=== PATIENT | male | born 1960 | race Caucasian/White ===

== ENCOUNTER 2016-12-28 19:06 | Emergency (ER) | payer MEDICARE ==
[~2016-12-28] VITALS: Ht 167.6 cm; Wt 108.0 kg
[2016-12-28 19:11] VITALS: BP 174/100; PULSE 86; RESP 14; TEMP 98; O2SAT 98
[2016-12-28] MEDS ORDERED: VANCOMYCIN INJ 1,000 MG in SODIUM CHLOR 0.9% 250 ML INJ 250 ML IV ONE (21:30)
--- NOTE | 2016-12-28 21:45 | PD ---
HPI Chief Complaint: Skin Problem Time Seen by Provider: 21:39 Travel History International Travel<30 days: No Contact w/Intl Traveler<30days: No Traveled to known affect area: No History of Present Illness HPI 56-year-old male that presents to the ED for evaluation of left lower leg infection. Patient has had this for about a week now. Per patient about 4 days ago he was seen a different hospital and was given Keflex. Per patient had an x-ray that showed nothing. Patient states that about 2 months ago something fell into his left fourth toe. He states that ever since his been having issues. Per patient he has noted that the swelling and pain has worsened. Per patient his foot is more swollen than used to be. The foot on the left compared to the right appears to be double in size. He denies any history of blood clots. Per patient the redness seems to be creeping up. He has an allergy to Augmentin. He denies any fevers chills or sweats. No chest pain or shortness of breath. States compliance with the Keflex. He has not seen his PCP for this. Per patient pain is 5 out of 10. Patient has difficulty ambulating. Patient does have chronic neurological and back problems that he normally takes medication for. He denies any history of HIV or IV drug abuse. PFSH Past Medical History Neurologic: Yes (RSD) Tetanus Vaccination: < 5 Years Influenza Vaccination: Yes Past Surgical History Thoracic Surgery: Yes (STIMULATEWR IN BACK) Social History Alcohol Use: No Tobacco Use: No Substance Use: No Allergies-Medications (Allergen,Severity, Reaction): Coded Allergies: Augmentin (Verified Adverse Reaction, Intermediate, Nausea/Vomiting, ) Reported Meds & Prescriptions Reported Meds & Active Scripts Active Clindamycin (Clindamycin HCl) 150 Mg Cap 300 Mg PO Q6H 10 Days Bactrim DS (Sulfamethoxazole-Trimethoprim) 800-160 Mg Tab 1 Tab PO BID 14 Days Review of Systems Except as stated in HPI: all other systems reviewed are Neg Physical Exam Narrative GENERAL: SKIN: Warm and dry. HEAD: Atraumatic. Normocephalic. EYES: Pupils equal and round. No scleral icterus. No injection or drainage. ENT: No nasal bleeding or discharge. Mucous membranes pink and moist. Tongue is midline. No uvula deviation. NECK: Trachea midline. No JVD. CARDIOVASCULAR: Regular rate and rhythm. No murmurs, S3, S4. RESPIRATORY: No accessory muscle use. Clear to auscultation. Breath sounds equal bilaterally. GASTROINTESTINAL: Abdomen soft, non-tender, nondistended. Hepatic and splenic margins not palpable. MUSCULOSKELETAL: Extremities without clubbing, cyanosis, or edema. No obvious deformities. Full range of motion of the upper and lower extremities bilaterally. 2+ pulses bilaterally. No lumbar, thoracic, cervical spine tenderness to palpation. Patient does have what appears to be a small ulcer- like lesion on the left fourth toe. On the distal aspect. Less than one centimeters in diameter. Erythematous and swollen. Left foot compared to the right is considerably swollen. About 2+ pitting edema. 2+ pulses bilaterally. Patient does have warmness and erythema noted creeping up the foot. NEUROLOGICAL: Awake and alert. No obvious cranial nerve deficits. Motor grossly within normal limits. Five out of 5 muscle strength in the arms and legs. Normal speech. PSYCHIATRIC: Appropriate mood and affect; insight and judgment normal. Data Data Last Documented VS Vital Signs Date Time Temp Pulse Resp B/P Pulse Ox O2 Delivery O2 Flow Rate FiO2 12/28/16 19:11 98.0 86 14 174/100 98 Room Air Orders Complete Blood Count With Diff (12/28/16 21:20) Basic Metabolic Panel (Bmp) (12/28/16 21:20) Blood Culture (12/28/16 21:20) Magnesium (Mg) (12/28/16 21:20) Iv Access Insert/Monitor (12/28/16 21:20) Vancomycin Inj (Vancomycin Inj) (12/28/16 21:30) Foot, Complete (Tum1pjc) (12/28/16 ) Us Leg Venous Doppler (12/28/16 ) C-Reactive Protein (Crp) (12/28/16 21:40) Wound Care (12/28/16 22:52) Labs Laboratory Tests Test 12/28/16 21:40 White Blood Count 8.0 TH/MM3 Red Blood Count 5.15 MIL/MM3 Hemoglobin 14.8 GM/DL Hematocrit 43.4 % Mean Corpuscular Volume 84.4 FL Mean Corpuscular Hemoglobin 28.8 PG Mean Corpuscular Hemoglobin 34.1 % Concent Red Cell Distribution Width 13.3 % Platelet Count 232 TH/MM3 Mean Platelet Volume 8.5 FL Neutrophils (%) (Auto) 60.7 % Lymphocytes (%) (Auto) 21.3 % Monocytes (%) (Auto) 9.6 % Eosinophils (%) (Auto) 7.8 % Basophils (%) (Auto) 0.6 % Neutrophils # (Auto) 4.8 TH/MM3 Lymphocytes # (Auto) 1.7 TH/MM3 Monocytes # (Auto) 0.8 TH/MM3 Eosinophils # (Auto) 0.6 TH/MM3 Basophils # (Auto) 0.0 TH/MM3 CBC Comment DIFF FINAL Differential Comment Sodium Level 139 MEQ/L Potassium Level 3.7 MEQ/L Chloride Level 103 MEQ/L Carbon Dioxide Level 30.6 MEQ/L Anion Gap 5 MEQ/L Blood Urea Nitrogen 9 MG/DL Creatinine 0.74 MG/DL Estimat Glomerular Filtration 110 ML/MIN Rate Random Glucose 106 MG/DL Calcium Level 9.2 MG/DL Magnesium Level 2.2 MG/DL C-Reactive Protein 0.98 MG/DL MDM Medical Decision Making Medical Screen Exam Complete: Yes Emergency Medical Condition: Yes Medical Record Reviewed: Yes Interpretation(s) CBC & BMP Diagram 12/28/16 21:40 Last Impressions Lower Extremity Ultrasound 12/28/16 0000 Signed Impressions: Service Date/Time: December 21:34 - CONCLUSION: Normal examination. Jak Sharp MD Foot X-Ray 12/28/16 0000 Signed Impressions: Service Date/Time: December 21:33 - CONCLUSION: No acute bony findings Jak Sharp MD CRP slightly elevated Differential Diagnosis Cellulitis versus DVT versus osteomyelitis versus failed outpatient treatment versus sepsis Narrative Course 56-year-old male that presents to the ED for evaluation of possible worsening infection. Patient was properly examined and was found to have signs and symptoms consistent appears to be cellulitis. Concerning for osteomyelitis present. I recommend labs and imaging. Cannot rule out DVT secondary to significant swelling. US was ordered. Labs and imaging essentially unremarkable. No leukocytosis. At this time I did offer patient observation admission for IV antibiotics as he clinically felt all patient treatment. Patient will prefer to go home secondary to having to take care of his child. I feel that at this time this is reasonable as patient has only taking Keflex and not believe this is covering appropriate thomas causing the infection. This was discussed in my attending who is in agreement with this plan. Patient will be given prescription for clindamycin and Bactrim. I strongly encouraged the patient to come back in 2 days for recheck. If worsening he is to come back earlier. See ED worsening symptoms. Diagnosis Primary Impression: Cellulitis Qualified Code: L03.116 - Cellulitis of left lower extremity Patient Instructions: General Instructions Additional Instructions: Take medications as prescribed. Recheck in 48 hours. Follow-up with PCP. See ED worsening symptoms. Med/Other Pt SpecificInfo: Prescription(s) given, Wound Care Scripts Clindamycin 150 Mg Ats122 Mg PO Q6H 10 Days Prov:Conrad Lindo MD 12/28/16 Sulfamethoxazole-Trimethoprim (Bactrim DS)800-160 Mg Tab1 Tab PO BID 14 Days Prov:Conrad Lindo MD 12/28/16 Disposition: 01 DISCHARGE HOME Condition: Stable Arsh Pantoja December 28, 2016 21:45
--- NOTE | 2016-12-28 22:06 | RADRPT ---
EXAM DATE/TIME: 12/28/2016 21:33 [facility] COMPARISON: No previous studies available for comparison. INDICATIONS : Left foot pain, swelling, and redness. Fourth digit has an open sore. MEDICAL HISTORY : None. SURGICAL HISTORY : Open reduction internal fixation, 1st digit left foot. Open reduction internal fixation left ankle. ENCOUNTER: Initial ACUITY: 3 days PAIN SCORE: 6/10 LOCATION: Left foot FINDINGS: There has been previous ankle fusion with a tibial IM angeline extending down into the calcaneus secured w ith a couple of screws. There has been plate and screw fixation of the proximal aspect of the first m etatarsal. There are is no evidence of fracture, dislocation or bony destruction. There are mild flex ion contractures of the toes and slight bunion deformity. CONCLUSION: No acute bony findings Jak Sharp MD on December 28, 2016 at 22:02 Board Certified Radiologist. This report was verified electronically.
[2016-12-28 22:17] LABS: AUTOMATED NEUTROPHIL # 4.8 TH/MM3 (1.8-7.7); BASOPHIL % 0.6 % (0.0-2.0); EOSINOPHIL # 0.6 TH/MM3 (0-0.4); EOSINOPHIL % 7.8 % (0.0-4.0); HEMATOCRIT 43.4 % (39.0-51.0); HEMO FLAGS DIFF FINAL; LYMPH % 21.3 % (9.0-44.0); LYMPHOCYTE # 1.7 TH/MM3 (1.0-4.8); MEAN CELL VOLUME 84.4 FL (80.0-100.0); MEAN CORPUSCULAR HEMOGLOBIN 28.8 PG (27.0-34.0); MEAN CORPUSCULAR HGB CONC 34.1 % (32.0-36.0); MONO % 9.6 % (0.0-8.0); NEUT % 60.7 % (16.0-70.0); PLATELET COUNT 232 TH/MM3 (150-450); RED BLOOD COUNT 5.15 MIL/MM3 (4.50-5.90); RED CELL DISTRIBUTION WIDTH 13.3 % (11.6-17.2)
[2016-12-28 22:30] LABS: BICARBONATE 30.6 MEQ/L (21.0-32.0); MAGNESIUM 2.2 MG/DL (1.5-2.5); POTASSIUM 3.7 MEQ/L (3.5-5.1)
--- NOTE | 2016-12-28 22:36 | RADRPT ---
EXAM DATE/TIME: 12/28/2016 21:34 [facility] COMPARISON: No previous studies available for comparison. INDICATIONS : Left leg swelling. MEDICAL HISTORY : Reflex sympathetic dystrophy. SURGICAL HISTORY : Total knee replacement, right. Left ankle reconstruction. Back stimulater. ENCOUNTER: Initial ACUITY: 2 day PAIN SCORE: 6/10 LOCATION: Left leg. TECHNIQUE: Venous ultrasound of the leg was performed from the inguinal ligament to the proximal calf. Real-josse e, color Doppler and spectral tracing, compression and augmentation techniques were used. FINDINGS: There is normal compressibility of the deep venous system from the inguinal region to the proximal ca lf. No echogenic clot is seen in the lumen of the common femoral, femoral, popliteal, and posterior tibial veins. There is a normal response of the venous system to proximal and distal augmentation an d respiration. CONCLUSION: Normal examination. Jak Sharp MD on December 28, 2016 at 22:33 Board Certified Radiologist. This report was verified electronically.
[2016-12-28] MEDS ORDERED: CLIN1CAP5 PO (22:49)
[2016-12-28] MEDS ORDERED: BACT800T5 PO (22:49)
[2016-12-29] VITALS: BP 166/84
== END 2016-12-29 00:07 | disposition home or self-care (01) ==
LOC: NEPE 19:06
DX: L03.116 Cellulitis of left lower limb (principal); Z79.899 Other long term (current) drug therapy
CPT/HCPCS: 73630; 80048; 83735; 85025; 86140; 87040; 93971; 96374; 99284; J3370; J7050

== ENCOUNTER 2016-12-31 10:52 | Emergency (ER) | payer MEDICARE ==
[~2016-12-31] VITALS: Ht 167.6 cm; Wt 100.0 kg
[~2016-12-31 10:52] MED LIST: BACT800T5 PO; CLIN1CAP5 PO
[2016-12-31 10:53] VITALS: BP 172/98; PULSE 74; RESP 16; TEMP 98.2; O2SAT 99
[2016-12-31] MEDS ORDERED: NEXI40CA PO (11:08)
[2016-12-31] MEDS ORDERED: METH10TA PO (11:08)
[2016-12-31] MEDS ORDERED: ADDE30TA PO (11:08)
[2016-12-31] MEDS ORDERED: TAMS5CAP PO (11:08)
[2016-12-31] MEDS ORDERED: TOPI200 PO (11:08)
[2016-12-31] MEDS ORDERED: LIDOCAINE HCL 1% 50 ML VIAL INFIL ONE (11:30)
[2016-12-31] MEDS ORDERED: NEOMYCIN/POLYMYXIN/BACITRACIN OINT 0.9 GM PACKET TOPICAL ONE (11:45)
--- NOTE | 2016-12-31 11:45 | PD ---
HPI . Recheck of cellulitis Chief Complaint: Wound/Suture/Staple Re-Check Time Seen by Provider: 11:13 Travel History International Travel<30 days: No Contact w/Intl Traveler<30days: No Traveled to known affect area: No History of Present Illness HPI Patient presents for recheck of cellulitis. He was seen here 2 days ago for same. He was treated with a dose of IV vancomycin and was discharged on clindamycin and Bactrim. The patient is still complaining with significant pain in his left fourth toe. He believes that the toenail is ingrown and would like for me to remove it. He rates his current pain as 7/10. Pain is exacerbated by touching the fifth toe. The patient's symptoms started over a week ago. He was reportedly seen at an outside hospital on about 12/24 and given a prescription for Keflex. He did not improve with Keflex and was subsequently seen here. He was worked up for possible osteomyelitis at that time. He had a normal white blood count and C- reactive protein. X-ray showed no obstructive lesion. The patient was treated with the above-mentioned antibiotics and was instructed to return here today for routine follow-up. [facility] Past Medical History Neurologic: Yes (RSD) Past Surgical History Thoracic Surgery: Yes (STIMULATEWR IN BACK) Social History Alcohol Use: No Tobacco Use: No Substance Use: No Allergies-Medications (Allergen,Severity, Reaction): Coded Allergies: Augmentin (Verified Adverse Reaction, Intermediate, Nausea/Vomiting, ) Reported Meds & Prescriptions Reported Meds & Active Scripts Active Clindamycin (Clindamycin HCl) 150 Mg Cap 300 Mg PO Q6H 10 Days Bactrim DS (Sulfamethoxazole-Trimethoprim) 800-160 Mg Tab 1 Tab PO BID 14 Days Reported Nexium (Esomeprazole DR) 40 Mg Capdr 40 Mg PO DAILY Topamax (Topiramate) 200 Mg Tab 200 Mg PO BID Flomax (Tamsulosin HCl) 0.4 Mg Cap 0.4 Mg PO HS Methadone (Methadone HCl) 10 Mg Tab 10 Mg PO BID Adderall (Amphetamine-Dextroamphetamine) 30 Mg Tab 30 Mg PO BID Avoid late evening doses. Space doses at least 4 to 6 hours if more than once/day dosing. Review of Systems Except as stated in HPI: all other systems reviewed are Neg General / Constitutional: No: Fever, Chills Musculoskeletal: Positive: Edema, Pain (left fourth toe) Skin: Positive Change in Pigmentation Physical Exam Narrative GENERAL: Awake and alert and in no acute distress. SKIN: Warm and dry. Erythema of the left lower extremity extending from the foot to about senior living up the lower leg. It is slightly warm to the touch. He has some fluctuance at the tip of the fourth toe and it is exquisitely tender to palpation. HEAD: Atraumatic. Normocephalic. EYES: Pupils equal and round. NECK: Trachea midline. CARDIOVASCULAR: Regular rate and rhythm. RESPIRATORY: No accessory muscle use. MUSCULOSKELETAL: No obvious deformities. No edema. NEUROLOGICAL: Awake and alert. No obvious cranial nerve deficits. Motor grossly within normal limits. Normal speech. PSYCHIATRIC: Appropriate mood and affect; insight and judgment normal. Data Data Last Documented VS Vital Signs Date Time Temp Pulse Resp B/P Pulse Ox O2 Delivery O2 Flow Rate FiO2 12/31/16 11:09 18 12/31/16 10:53 98.2 74 172/98 99 Orders Lidocaine 1% Inj (50 Ml) (Xylocaine 1% I (12/31/16 11:30) Jansmhgc-Hwidh-Yhrwrbcrsn Oint (Neospori (12/31/16 11:45) Wound Care (12/31/16 11:45) MDM Medical Decision Making Medical Screen Exam Complete: Yes Emergency Medical Condition: Yes Medical Record Reviewed: Yes (pertinent results of the review of his records are documented in his history of present illness.) Differential Diagnosis My differential diagnosis includes but is not limited to localized wound infection, cellulitis, abscess Narrative Course Patient presents for recheck of cellulitis. He is currently being treated with clindamycin and Bactrim. He reports compliance with this medication. He reports no fever or any other systemic complaints. He would like to have his left fourth toenail removed as he believes that it is causing him significant pain. He does have what appears to be an abscess at the tip of the left fourth toe. Therefore, I will do a digital block, remove the nail and incise the tip of the toe. Procedures Procedure Narrative DIGITAL BLOCK: A digital block is performed on the left fourth toe using 10 cc of 1% plain lidocaine. Adequate anesthesia was not obtained. Therefore, the area was locally infiltrated with an additional 2 cc of 1% plain lidocaine. REMOVAL OF NAIL: The skin was prepped with Betadine. Following adequate anesthesia, the nail was removed using a needle truck driver teamster. The fluctuant pocket was incised with #11 blade. There was no pus. Diagnosis Primary Impression: Cellulitis Qualified Code: L03.116 - Cellulitis of left lower extremity Referrals: [facility] 3 days Patient Instructions: Cellulitis (DC), General Instructions Additional Instructions: Wash her toe twice daily with soap and water and then apply Neosporin ointment. Continue the antibiotics. Disposition: 01 DISCHARGE HOME Condition: Stable Cecile Burks MD December 31, 2016 11:45
== END 2016-12-31 12:13 | disposition home or self-care (01) ==
LOC: NEPC 10:52
DX: L03.116 Cellulitis of left lower limb (principal)
CPT/HCPCS: 11730

== ENCOUNTER 2017-03-24 02:48 | Emergency (ER) | payer MEDICARE ==
[~2017-03-24] VITALS: Ht 170.2 cm; Wt 108.0 kg
[~2017-03-24 02:48] MED LIST changes: +ADDE30TA PO; +METH10TA PO; +NEXI40CA PO; +TAMS5CAP PO; +TOPI200 PO
[2017-03-24 02:51] VITALS: BP 168/89; PULSE 80; RESP 12; TEMP 97.6; O2SAT 97
[2017-03-24] MEDS ORDERED: ACETAMINOPHEN 500 MG CPLT PO ONE (03:30)
--- NOTE | 2017-03-24 03:46 | PD ---
HPI Chief Complaint: Pain: Acute or Chronic Time Seen by Provider: 03:18 Travel History International Travel<30 days: No Contact w/Intl Traveler<30days: No Traveled to known affect area: No History of Present Illness HPI Patient is a 56-year-old male who presents emergency Department with complaint of knee pain. Patient has a history of knee osteoarthritis status post TKA 2009. Patient states that every once in a while his right knee will "swell up" , and is associated with some pain. Patient was doing some cleaning around the house yesterday. He woke up this morning to use a restroom and noticed that his right knee was swollen prompting his ER visit. Pain is primarily in the lateral aspect of the right knee which is chronic for patient. He has not taken anything for pain prior to arrival. Patient also notes some right sided shoulder pain, worse with movement. He denies any specific injury, fall, trauma , etc. PFSH Past Medical History ADHD: Yes GERD: Yes Neurologic: Yes (RSD) Migraines: Yes Influenza Vaccination: Yes Past Surgical History Thoracic Surgery: Yes (STIMULATER IN BACK) Social History Alcohol Use: No Tobacco Use: No Substance Use: No Allergies-Medications (Allergen,Severity, Reaction): Coded Allergies: Augmentin (Verified Adverse Reaction, Intermediate, Nausea/Vomiting, ) Reported Meds & Prescriptions Reported Meds & Active Scripts Active Reported Nexium (Esomeprazole DR) 40 Mg Capdr 40 Mg PO DAILY Topamax (Topiramate) 200 Mg Tab 200 Mg PO BID Flomax (Tamsulosin HCl) 0.4 Mg Cap 0.4 Mg PO HS Methadone (Methadone HCl) 10 Mg Tab 10 Mg PO BID Adderall (Amphetamine-Dextroamphetamine) 30 Mg Tab 30 Mg PO BID Avoid late evening doses. Space doses at least 4 to 6 hours if more than once/day dosing. Review of Systems Except as stated in HPI: all other systems reviewed are Neg Physical Exam Narrative GENERAL: Adult male appearing older than stated age in no acute distress SKIN: Focused skin assessment warm/dry. HEAD: Normocephalic. EYES: No scleral icterus. No injection or drainage. ENT: Mucous membranes pink and moist. CARDIOVASCULAR: Regular rate and rhythm. RESPIRATORY: No accessory muscle use. GASTROINTESTINAL: Obese MUSCULOSKELETAL: Right upper extremity without any obvious deformity. No focal tenderness to palpation. Patient has pain with extreme abduction and external rotation area didn't 5 out of 5 strength, normal sensation and distal pulses. Right lower extremity with scar from previous DKA. There is no obvious palpable joint effusion, swelling, erythema, warmth. Patient does complain of some slight tenderness to palpation over the lateral aspect of the joint line. Distal sensation, pulses, strength intact. Normal ambulation. NEUROLOGICAL: Awake and alert. Normal speech. PSYCHIATRIC: Appropriate mood and affect; insight and judgment normal. Data Data Last Documented VS Vital Signs Date Time Temp Pulse Resp B/P Pulse Ox O2 Delivery O2 Flow Rate FiO2 03/24/17 02:51 97.6 80 12 168/89 97 Room Air Orders Knee, Complete (4vws) (03/24/17 03:23) Shoulder, Complete (>2vws) (03/24/17 03:23) Acetaminophen (Tylenol) (03/24/17 03:30) MDM Medical Decision Making Medical Screen Exam Complete: Yes Emergency Medical Condition: Yes Medical Record Reviewed: Yes Differential Diagnosis 56-year-old male here with complaint of right knee and right shoulder pain. Differential includes knee osteoarthritis, fracture, internal derangement of the knee, rotator cuff injury right shoulder, overuse injury, drug-seeking behavior. Patient is on methadone and is followed by a physician in [place].. There is no evidence of infection, septic arthritis clinically. Narrative Course Patient given Tylenol for pain. X-rays of the right shoulder and right knee showed right sided knee joint effusion otherwise negative Diagnosis Primary Impression: Effusion of right knee joint Additional Impressions: Right knee pain Qualified Code: M25.561 - Chronic pain of right knee Right shoulder pain Qualified Code: M25.511 - Acute pain of right shoulder Referrals: Primary Care Physician call for appointment Additional Instructions: Tylenol, ibuprofen, Aleve as needed for pain. Ice the affected area 20 minutes at a time 3-4 times daily. Med/Other Pt SpecificInfo: No Change to Meds Disposition: 01 DISCHARGE HOME Condition: Stable Cristiane Ames MD Mar 24, 2017 03:46
--- NOTE | 2017-03-24 04:12 | RADRPT ---
EXAM DATE/TIME: 03/24/2017 03:33 [facility] COMPARISON: No previous studies available for comparison. INDICATIONS : Pain and swelling to right shoulder- no known injury. MEDICAL HISTORY : None. SURGICAL HISTORY : None. ENCOUNTER: Initial ACUITY: 1 day PAIN SCORE: 7/10 LOCATION: Right Shoulder FINDINGS: There is no evidence of acute fracture. Bony mineralization is normal. The glenohumeral joint is inta ct. The acromioclavicular joint is intact. CONCLUSION: 1. Negative examination of the shoulder. Bruce Jaramillo MD on March 24, 2017 at 4:11 Board Certified Radiologist. This report was verified electronically.
--- NOTE | 2017-03-24 04:13 | RADRPT ---
EXAM DATE/TIME: 03/24/2017 03:38 [facility] COMPARISON: No previous studies available for comparison. INDICATIONS : Pain and swelling to right knee- no known injury. MEDICAL HISTORY : None. SURGICAL HISTORY : Total knee replacement, right. ENCOUNTER: Initial ACUITY: 1 day PAIN SCORE: 6/10 LOCATION: Right Knee FINDINGS: A right knee arthroplasty is present in satisfactory position. A suprapatellar joint effusion is pre sent. There are no radiographic findings to suggest loosening. CONCLUSION: 1. Joint effusion Bruce Jaraimllo MD on March 24, 2017 at 4:11 Board Certified Radiologist. This report was verified electronically.
== END 2017-03-24 04:35 | disposition home or self-care (01) ==
LOC: NEPE 02:48
DX: M25.461 Effusion, right knee (principal); M25.561 Pain in right knee; M25.511 Pain in right shoulder; F90.9 Attention-deficit hyperactivity disorder, unspecified type; K21.9 Gastro-esophageal reflux disease without esophagitis; G89.29 Other chronic pain; Z79.899 Other long term (current) drug therapy
CPT/HCPCS: 73030; 73564; 99284

== ENCOUNTER 2017-04-27 14:51 | Emergency (ER) | payer MEDICARE ==
[~2017-04-27] VITALS: Ht 167.6 cm; Wt 100.0 kg
[~2017-04-27 14:51] MED LIST changes: -BACT800T5 PO; -CLIN1CAP5 PO
[2017-04-27 14:54] VITALS: BP 176/99; PULSE 71; RESP 16; TEMP 97.7; O2SAT 99
[2017-04-27] MEDS ORDERED: SODIUM CHLOR 0.9% 1000 ML INJ 1,000 ML IV ONE (15:19)
[2017-04-27] MEDS ORDERED: SODIUM CHLORIDE 0.9% FLUSH 10 ML FLUSH IVF PRN (15:30)
[2017-04-27 15:56] LABS: AUTOMATED NEUTROPHIL # 6.7 TH/MM3 (1.8-7.7); BASOPHIL # 0.1 TH/MM3 (0-0.2); BASOPHIL % 0.8 % (0.0-2.0); EOSINOPHIL # 0.3 TH/MM3 (0-0.4); EOSINOPHIL % 3.1 % (0.0-4.0); HEMATOCRIT 44.7 % (39.0-51.0); HEMO FLAGS DIFF FINAL; LYMPH % 15.5 % (9.0-44.0); LYMPHOCYTE # 1.4 TH/MM3 (1.0-4.8); MEAN CELL VOLUME 86.9 FL (80.0-100.0); MEAN CORPUSCULAR HEMOGLOBIN 28.8 PG (27.0-34.0); MEAN CORPUSCULAR HGB CONC 33.1 % (32.0-36.0); MONO % 7.5 % (0.0-8.0); NEUT % 73.1 % (16.0-70.0); PLATELET COUNT 228 TH/MM3 (150-450); RED BLOOD COUNT 5.14 MIL/MM3 (4.50-5.90); RED CELL DISTRIBUTION WIDTH 13.1 % (11.6-17.2); WHITE BLOOD COUNT 9.1 TH/MM3 (4.0-11.0)
--- NOTE | 2017-04-27 15:58 | PD ---
HPI Chief Complaint: Neuro Symptoms/ Deficits Time Seen by Provider: 15:02 Travel History International Travel<30 days: No Contact w/Intl Traveler<30days: No Traveled to known affect area: No History of Present Illness HPI 56-year-old male presents to the emergency department for evaluation of feeling "tired and disoriented" for the past 3 days. The patient states he has been falling asleep randomly for the past 3 days. He also states that he has had intermittent headaches for the past 2 months. He currently has a frontal headache at this time. The patient also reports some mild shortness of breath, but denies any chest pain. He denies any syncope. He states he has had diarrhea for the past week. He states that he was seen at [facility] earlier this week for "an eye infection" and was placed on eyedrops and amoxicillin. He states that he is still taking these, but his eyes are feeling much better. The patient states that he vomited 2 times last night, undigested food. He also reports several episodes of diarrhea today, denies any blood in his stool. Patient denies any abdominal pain. Patient denies any fevers or chills. No visual changes. Patient states that he had this occur one time in the past and he had low potassium. He is concerned that he may have low potassium this time as well. Patient states that he is not taking any medications other than the amoxicillin eyedrops. PFSH Past Medical History ADHD: Yes GERD: Yes Neurologic: Yes (RSD) Migraines: Yes Past Surgical History Thoracic Surgery: Yes (STIMULATER IN BACK) Social History Alcohol Use: No Tobacco Use: No Substance Use: No Allergies-Medications (Allergen,Severity, Reaction): Coded Allergies: amoxicillin (Unverified Adverse Reaction, Intermediate, Nausea/Vomiting, ) clavulanic acid (Unverified Adverse Reaction, Intermediate, Nausea/ Vomiting, 04/27/17) Reported Meds & Prescriptions Reported Meds & Active Scripts Active Reported Nexium (Esomeprazole DR) 40 Mg Capdr 40 Mg PO DAILY Topamax (Topiramate) 200 Mg Tab 200 Mg PO BID Flomax (Tamsulosin HCl) 0.4 Mg Cap 0.4 Mg PO HS Methadone (Methadone HCl) 10 Mg Tab 10 Mg PO BID Adderall (Amphetamine-Dextroamphetamine) 30 Mg Tab 30 Mg PO BID Avoid late evening doses. Space doses at least 4 to 6 hours if more than once/day dosing. Review of Systems Except as stated in HPI: all other systems reviewed are Neg Physical Exam Narrative GENERAL: Well-nourished, well-developed male patient, afebrile. Patient is alert and oriented x4. He answers all questions appropriately. SKIN: Focused skin assessment warm/dry. HEAD: Normocephalic. Atraumatic. ENT: Mucosa pink and moist. No erythema or exudates. No uvular edema. No uvular , palatal, or tonsillar deviation. Airway patent. Nasal turbinates appear normal without nasal blood, purulent drainage or septal hematoma. Bilateral tympanic membranes are clear without erythema or perforation. EYES: No scleral icterus. No injection or drainage. NECK: Supple, trachea midline. No JVD or lymphadenopathy. CARDIOVASCULAR: Regular rate and rhythm without murmurs, gallops, or rubs. RESPIRATORY: Breath sounds equal bilaterally. No accessory muscle use. Lungs sounds are clear to auscultation. GASTROINTESTINAL: Abdomen soft, non-tender, nondistended. MUSCULOSKELETAL: No cyanosis, or edema. BACK: Nontender without obvious deformity. No CVA tenderness. NEUROLOGICAL: Awake and alert. Cranial nerves II through XII intact. Motor and sensory grossly within normal limits. Five out of 5 muscle strength in all muscle groups. Normal speech. Data Data Last Documented VS Vital Signs Date Time Temp Pulse Resp B/P (MAP) Pulse Ox O2 Delivery O2 Flow Rate FiO2 04/27/17 14:54 97.7 71 16 176/99 (124) 99 Orders Orders Electrocardiogram (04/27/17 15:19) Complete Blood Count With Diff (04/27/17 15:19) Comprehensive Metabolic Panel (04/27/17 15:19) Magnesium (Mg) (04/27/17 15:19) Ckmb (Isoenzyme) Profile (04/27/17 15:19) Troponin I (04/27/17 15:19) Act Partial Throm Time (Ptt) (04/27/17 15:19) Prothrombin Time / Inr (Pt) (04/27/17 15:19) Urinalysis - C+S If Indicated (04/27/17 15:19) Chest, Single Ap (04/27/17 15:19) Ct Brain W/O Iv Contrast(Rout) (04/27/17 15:19) Ecg Monitoring (04/27/17 15:19) Iv Access Insert/Monitor (04/27/17 15:19) Oximetry (04/27/17 15:19) Sodium Chloride 0.9% Flush (Ns Flush) (04/27/17 15:30) Sodium Chlor 0.9% 1000 Ml Inj (Ns 1000 M (04/27/17 15:19) C Diff Toxin Pcr (04/27/17 15:19) Ondansetron Inj (Zofran Inj) (04/27/17 16:00) Ketorolac Inj (Toradol Inj) (04/27/17 16:30) CKMB (04/27/17 15:40) CKMB% (04/27/17 15:40) Labs Laboratory Tests Test 04/27/17 15:40 04/27/17 16:15 White Blood Count 9.1 TH/MM3 Red Blood Count 5.14 MIL/MM3 Hemoglobin 14.8 GM/DL Hematocrit 44.7 % Mean Corpuscular Volume 86.9 FL Mean Corpuscular Hemoglobin 28.8 PG Mean Corpuscular Hemoglobin Concent 33.1 % Red Cell Distribution Width 13.1 % Platelet Count 228 TH/MM3 Mean Platelet Volume 8.1 FL Neutrophils (%) (Auto) 73.1 % Lymphocytes (%) (Auto) 15.5 % Monocytes (%) (Auto) 7.5 % Eosinophils (%) (Auto) 3.1 % Basophils (%) (Auto) 0.8 % Neutrophils # (Auto) 6.7 TH/MM3 Lymphocytes # (Auto) 1.4 TH/MM3 Monocytes # (Auto) 0.7 TH/MM3 Eosinophils # (Auto) 0.3 TH/MM3 Basophils # (Auto) 0.1 TH/MM3 CBC Comment DIFF FINAL Differential Comment Prothrombin Time 9.9 SEC Prothromb Time International Ratio 0.9 RATIO Activated Partial Thromboplast Time 26.6 SEC Blood Urea Nitrogen 8 MG/DL Creatinine 0.68 MG/DL Random Glucose 102 MG/DL Total Protein 7.8 GM/DL Albumin 3.2 GM/DL Calcium Level 8.9 MG/DL Magnesium Level 2.2 MG/DL Alkaline Phosphatase 107 U/L Aspartate Amino Transf (AST/SGOT) 44 U/L Alanine Aminotransferase (ALT/SGPT) 48 U/L Total Bilirubin 0.3 MG/DL Sodium Level 139 MEQ/L Potassium Level 4.3 MEQ/L Chloride Level 104 MEQ/L Carbon Dioxide Level 27.9 MEQ/L Anion Gap 7 MEQ/L Estimat Glomerular Filtration Rate 122 ML/MIN Total Creatine Kinase 220 U/L Creatine Kinase MB 3.6 NG/ML Troponin I LESS THAN 0.02 NG/ML Urine Color YELLOW Urine Turbidity CLEAR Urine pH 7.5 Urine Specific [place] 1.014 Urine Protein 100 mg/dL Urine Glucose (UA) NEG mg/dL Urine Ketones NEG mg/dL Urine Occult Blood NEG Urine Nitrite NEG Urine Bilirubin NEG Urine Urobilinogen LESS THAN 2.0 MG/DL Urine Leukocyte Esterase NEG Urine WBC 1 /hpf Urine Mucus FEW /lpf Microscopic Urinalysis Comment CULT NOT INDICATED MDM Medical Decision Making Medical Screen Exam Complete: Yes Emergency Medical Condition: Yes Medical Record Reviewed: Yes Interpretation(s) Ct brain - CONCLUSION: Negative for acute process. Chest x-ray - CONCLUSION: No acute cardiopulmonary disease. Differential Diagnosis Electrolyte abnormality versus dehydration versus gastroenteritis versus C. difficile diarrhea versus intracranial abnormality Narrative Course 56-year-old male presents to the emergency department for evaluation of feeling tired and disoriented for 3 days. He also reports diarrhea for 1 week. He states the diarrhea was ongoing before he started the antibiotic. EKG, CBC, CMP , magnesium, CK, troponin, PTT, PT/INR, UA are ordered and pending. CT of the brain and chest x-ray are ordered and pending. Patient is given normal saline 1 L IV bolus, Zofran 4 mg IV. EKG shows sinus bradycardia, heart rate 56, no acute ST changes. CBC shows no acute abnormality. CMP shows no acute abnormality, AST mildly elevated at 44. Magnesium is 2.2. CK is 220. Troponin is less than 0.02. Coags are unremarkable. UA is negative for acute infection. CT of the brain is negative for acute process. Chest x-ray shows no acute cardiopulmonary disease. I discussed the findings my attending physician, Dr. Littlejohn, who agrees with plan and disposition. I also discussed the findings with the patient. I instructed him on the need to follow up with his primary care physician. He verbalizes agreement and understanding to this. He is to return here for any acute worsening of symptoms. The patient was discharged in stable condition with instructions, including return instructions and follow up instructions. Diagnosis Primary Impression: Lethargy Referrals: Primary Care Physician call for appointment Patient Instructions: General Instructions, Weakness (ED) Additional Instructions: Follow-up with your primary care physician. Return to the emergency department for any acute worsening of symptoms. Med/Other Pt SpecificInfo: No Change to Meds Disposition: 01 DISCHARGE HOME Condition: Stable Tatianna Whitmore Apr 27, 2017 15:58
--- NOTE | 2017-04-27 15:59 | RADRPT ---
EXAM DATE/TIME: 04/27/2017 15:43 [facility] COMPARISON: No previous studies available for comparison. INDICATIONS : Confusion with dizziness and headaches. RADIATION DOSE: 56.35 CTDIvol (mGy) MEDICAL HISTORY : None SURGICAL HISTORY : RSD Stimulater in back, Left ankle sx. ENCOUNTER: Initial ACUITY: 3 days PAIN SCALE: 8/10 LOCATION: cranial frontal TECHNIQUE: Multiple contiguous axial images were obtained of the head. Using automated exposure control and adj ustment of the mA and/or kV according to patient size, radiation dose was kept as low as reasonably a chievable to obtain optimal diagnostic quality images. DICOM format image data is available electro nically for review and comparison. FINDINGS: CEREBRUM: The ventricles are normal for age. No evidence of midline shift, mass lesion, hemorrhage or acute in farction. No extra-axial fluid collections are seen. POSTERIOR FOSSA: The cerebellum and brainstem are intact. The 4th ventricle is midline. The cerebellopontine angle i s unremarkable. EXTRACRANIAL: The visualized portion of the orbits is intact. SKULL: The calvaria is intact. No evidence of skull fracture. CONCLUSION: Negative for acute process. Elias Hines MD FACR on April 27, 2017 at 15:57 Board Certified Radiologist. This report was verified electronically.
[2017-04-27] MEDS ORDERED: ONDANSETRON HCL 4 MG/2 ML VIAL IV PUSH ONE (16:00)
--- NOTE | 2017-04-27 16:00 | RADRPT ---
EXAM DATE/TIME: 04/27/2017 15:36 [facility] COMPARISON: No previous studies available for comparison. INDICATIONS : Fatigue and shortness of breath. MEDICAL HISTORY : None. SURGICAL HISTORY : Stimulator in back. ENCOUNTER: Initial ACUITY: 1 week PAIN SCORE: 0/10 LOCATION: Bilateral chest FINDINGS: The lungs are clear without infiltrate, nodule, or mass. There is no appreciable pleural effusion fo r technique. Heart and mediastinum are unremarkable. Spinal stimulator wire is present with thoracic convexity towards the right. CONCLUSION: No acute cardiopulmonary disease. Cielo Ordoñez MD on April 27, 2017 at 15:58 Board Certified Radiologist. This report was verified electronically.
[2017-04-27 16:06] LABS: APTT (PATIENT) 26.6 SEC (24.3-30.1); INTERNATIONAL NORMALIZED RATIO 0.9 RATIO; PROTHROMBIN TIME - PATIENT 9.9 SEC (9.8-11.6)
[2017-04-27] MEDS ORDERED: KETOROLAC TROMETHAMINE 30 MG/ML (IVP) VIAL IV PUSH ONE (16:30)
[2017-04-27 16:50] LABS: ALKALINE PHOSPHATASE 107 U/L (45-117); ALT (GPT) 48 U/L (12-78); ANION GAP 7 MEQ/L (5-15); AST (GOT) 44 U/L (15-37); BICARBONATE 27.9 MEQ/L (21.0-32.0); BLOOD UREA NITROGEN 8 MG/DL (7-18); CHLORIDE 104 MEQ/L (98-107); CREATINE KINASE 220 U/L (39-308); GLOMERULAR FILTRATION RATE 122 ML/MIN (>89); MAGNESIUM 2.2 MG/DL (1.5-2.5); POTASSIUM 4.3 MEQ/L (3.5-5.1); SODIUM (NA) 139 MEQ/L (136-145); TOTAL BILIRUBIN ADULT 0.3 MG/DL (0.2-1.0)
[2017-04-27 16:52] LABS: BLOOD, URINE NEG (NEG); COMMENT (UR) CULT NOT INDICATED; CULTURE IF INDICATED CULT NOT INDICATED; GLUCOSE,URINE NEG (NEG); KETONE, URINE NEG (NEG); MUCUS URINE FEW /lpf (OCC); NITRITE,URINE NEG (NEG); PH, URINE 7.5 (5.0-8.5); URINE COLOR YELLOW (YELLW/STRAW)
[2017-04-27 17:09] LABS: CKMB 3.6 NG/ML (0.5-3.6)
--- NOTE | 2017-04-28 13:59 | EKG ---
Date Performed: 04/27/2017 Time Performed: 16:03:22 PTAGE: 56 years EKG: SINUS BRADYCARDIA INFERIOR MYOCARDIAL INFARCTION ABNORMAL ECG NO PREVIOUS TRACING DOCTOR: Piotr Barajas Interpretating Date/Time 04/28/2017 13:58:48
== END 2017-04-27 18:08 | disposition home or self-care (01) ==
LOC: NEPE 14:51
DX: R53.83 Other fatigue (principal); R19.7 Diarrhea, unspecified; R00.1 Bradycardia, unspecified; R51 Headache; R06.02 Shortness of breath
CPT/HCPCS: 70450; 71010; 80053; 81001; 82550; 82552; 83735; 84484; 85025; 85610; 85730; 93005; 96361; 96374; 96375; 99285; J1885; J2405; J7030

== ENCOUNTER 2017-05-25 23:58 | Emergency (ER) | payer MEDICARE ==
[~2017-05-25] VITALS: Ht 167.6 cm; Wt 102.0 kg
[2017-05-26 00:01] VITALS: BP 173/105; PULSE 78; RESP 18; TEMP 99.4; O2SAT 98
[2017-05-26 00:53] VITALS: BP 144/73; PULSE 70; RESP 17; TEMP 97.9; O2SAT 97
[2017-05-26] MEDS ORDERED: CLINDAMYCIN INJ 600 MG in SODIUM CHLORIDE 0.9% INJ 100 ML IV ONE (01:15)
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
[2017-05-26 01:50] LABS: AUTOMATED NEUTROPHIL # 5.8 TH/MM3 (1.8-7.7); BASOPHIL % 0.5 % (0.0-2.0); EOSINOPHIL # 0.5 TH/MM3 (0-0.4); EOSINOPHIL % 5.4 % (0.0-4.0); HEMATOCRIT 41.4 % (39.0-51.0); HEMO FLAGS DIFF FINAL; LYMPH % 18.8 % (9.0-44.0); LYMPHOCYTE # 1.6 TH/MM3 (1.0-4.8); MEAN CORPUSCULAR HEMOGLOBIN 28.9 PG (27.0-34.0); MEAN CORPUSCULAR HGB CONC 33.6 % (32.0-36.0); MONO % 8.2 % (0.0-8.0); NEUT % 67.1 % (16.0-70.0); PLATELET COUNT 213 TH/MM3 (150-450); RED BLOOD COUNT 4.82 MIL/MM3 (4.50-5.90); RED CELL DISTRIBUTION WIDTH 13.4 % (11.6-17.2); WHITE BLOOD COUNT 8.7 TH/MM3 (4.0-11.0)
[2017-05-26 02:11] LABS: ALT (GPT) 63 U/L (12-78); ANION GAP 5 MEQ/L (5-15); AST (GOT) 35 U/L (15-37); BICARBONATE 30.6 MEQ/L (21.0-32.0); BLOOD UREA NITROGEN 17 MG/DL (7-18); CHLORIDE 103 MEQ/L (98-107); GLOMERULAR FILTRATION RATE 99 ML/MIN (>89); POTASSIUM 3.7 MEQ/L (3.5-5.1); SODIUM (NA) 139 MEQ/L (136-145)
[2017-05-26 02:14] LABS: ALKALINE PHOSPHATASE 119 U/L (45-117); TOTAL BILIRUBIN ADULT 0.3 MG/DL (0.2-1.0)
--- NOTE | 2017-05-26 03:26 | RADRPT ---
EXAM DATE/TIME: 05/26/2017 01:55 [facility] COMPARISON: No previous studies available for comparison. INDICATIONS : Right leg swelling and redness. MEDICAL HISTORY : Gastroesophageal reflux disease. Reflex sympathetic dystrophy. Migraines. ADHD. SURGICAL HISTORY : Total knee replacement, right. Back stimulator. Left ankle reconstruction. ENCOUNTER: Initial ACUITY: 2 day PAIN SCORE: 0/10 LOCATION: Right leg. TECHNIQUE: Venous ultrasound of the leg was performed from the inguinal ligament to the proximal calf. Real-josse e, color Doppler and spectral tracing, compression and augmentation techniques were used. FINDINGS: There is normal compressibility of the deep venous system from the inguinal region to the proximal ca lf. No echogenic clot is seen in the lumen of the common femoral, femoral, popliteal, and posterior tibial veins. There is a normal response of the venous system to proximal and distal augmentation an d respiration. CONCLUSION: Normal examination. Osito Louis Jr., MD on May 26, 2017 at 3:23 Board Certified Radiologist. This report was verified electronically.
[2017-05-26] MEDS ORDERED: CLIN150 PO (03:32)
== END 2017-05-26 06:52 | disposition home or self-care (01) ==
LOC: NEPE 23:58
DX: L03.115 Cellulitis of right lower limb (principal); F90.9 Attention-deficit hyperactivity disorder, unspecified type; K21.9 Gastro-esophageal reflux disease without esophagitis; G90.50 Complex regional pain syndrome I, unspecified; Z72.0 Tobacco use; Z79.899 Other long term (current) drug therapy
CPT/HCPCS: 80053; 83605; 85025; 87040; 93971; 96374

== ENCOUNTER 2017-06-22 02:20 | Emergency (ER) | payer MEDICARE ==
[~2017-06-22] VITALS: Ht 177.8 cm; Wt 105.0 kg
[~2017-06-22 02:20] MED LIST changes: +CLIN150 PO
[2017-06-22 02:30] VITALS: BP 137/68; TEMP 98.7; O2SAT 100
[2017-06-22] MEDS ORDERED: ASPIRIN 81 MG CHEW TAB PO ONE (02:45)
[2017-06-22] MEDS ORDERED: ONDANSETRON HCL 4 MG/2 ML VIAL IV PUSH ONE (02:45)
[2017-06-22] MEDS ORDERED: MORPHINE SULFATE 4 MG/ML INJ IV PUSH ONE (02:45)
[2017-06-22] MEDS ORDERED: SODIUM CHLORIDE 0.9% FLUSH 10 ML FLUSH IVF PRN (02:45)
[2017-06-22 02:59] VITALS: O2SAT 100
--- NOTE | 2017-06-22 03:11 | RADRPT ---
EXAM DATE/TIME: 06/22/2017 02:53 [facility] COMPARISON: CHEST SINGLE AP, April 27, 2017, 15:36. INDICATIONS : Patient complains of shortness of breath and chest pain that radiates into left shoulder/arm. MEDICAL HISTORY : None. SURGICAL HISTORY : Thoracic pain stimulator. ENCOUNTER: Initial ACUITY: 1 day PAIN SCORE: 8/10 LOCATION: chest FINDINGS: A single view of the chest demonstrates the lungs to be symmetrically aerated without evidence of mas s, infiltrate or effusion. The cardiomediastinal contours are unremarkable. Osseous structures are intact. Moderate to severe S-shaped thoracolumbar scoliosis again noted. Spina l stimulator present. CONCLUSION: No evidence of acute cardiopulmonary disease. Jak Hastings MD on June 22, 2017 at 3:08 Board Certified Radiologist. This report was verified electronically.
--- NOTE | 2017-06-22 03:12 | PD ---
HPI . Left forearm pain Chief Complaint: Chest Pain Time Seen by Provider: 02:40 Travel History International Travel<30 days: No Contact w/Intl Traveler<30days: No Traveled to known affect area: No History of Present Illness HPI This patient presents with chief complaint of left forearm pain. Onset was approximately an hour and a half prior to presentation. He states that he was asleep when it started hurting. He describes a sharp pain which is "tolerable. " He has not noted any modifying factors. He states that his left forearm pain is associated with shortness of breath and feeling disoriented. PFSH Past Medical History ADHD: Yes GERD: Yes Neurologic: Yes (RSD) Migraines: Yes Past Surgical History Thoracic Surgery: Yes (STIMULATER IN BACK) Social History Alcohol Use: No Tobacco Use: Yes Substance Use: No Allergies-Medications (Allergen,Severity, Reaction): Coded Allergies: amoxicillin (Unverified Adverse Reaction, Intermediate, Nausea/Vomiting, 05/26/17) clavulanic acid (Unverified Adverse Reaction, Intermediate, Nausea/ Vomiting, 05/26/17) Reported Meds & Prescriptions Reported Meds & Active Scripts Active Cleocin (Clindamycin HCl) 150 Mg Cap 150 Mg PO Q6H 10 Days Reported Nexium (Esomeprazole DR) 40 Mg Capdr 40 Mg PO DAILY Topamax (Topiramate) 200 Mg Tab 200 Mg PO BID Flomax (Tamsulosin HCl) 0.4 Mg Cap 0.4 Mg PO HS Methadone (Methadone HCl) 10 Mg Tab 10 Mg PO BID Adderall (Amphetamine-Dextroamphetamine) 30 Mg Tab 30 Mg PO BID Avoid late evening doses. Space doses at least 4 to 6 hours if more than once/day dosing. Review of Systems Except as stated in HPI: all other systems reviewed are Neg Cardiovascular: No: Chest Pain or Discomfort Respiratory: Positive: Shortness of Breath Gastrointestinal: No: Nausea, Vomiting Musculoskeletal: Positive: Pain Neurologic: No: Paresthesia Physical Exam Narrative GENERAL: Awake and no acute distress. SKIN: warm/dry. Normal tactile skin temperature. Normal color. Brisk capillary refill. HEAD: Normocephalic. Atraumatic. EYES: Pupils equal and round. No scleral icterus. No injection or drainage. ENT: No nasal bleeding or discharge. Mucous membranes pink and moist. NECK: Trachea midline. Full range of motion without pain.. CARDIOVASCULAR: Regular rate and rhythm. Heart sounds normal. Full and equal distal pulses. RESPIRATORY: No accessory muscle use. Clear to auscultation. Breath sounds equal bilaterally. GASTROINTESTINAL: Abdomen soft. Nontender. Bowel sounds present. Nondistended. MUSCULOSKELETAL: No obvious deformities. No tenderness to palpation of the musculature of the left forearm. NEUROLOGICAL: Awake and alert. No obvious cranial nerve deficits. Motor grossly within normal limits. Normal speech. PSYCHIATRIC: Appropriate mood and affect; insight and judgment normal. Data Data Last Documented VS Vital Signs Date Time Temp Pulse Resp B/P (MAP) Pulse Ox O2 Delivery O2 Flow Rate FiO2 06/22/17 02:59 100 Room Air 06/22/17 02:30 98.7 137/68 (91) Orders Orders Basic Metabolic Panel (Bmp) (06/22/17 02:42) Complete Blood Count With Diff (06/22/17 02:42) Magnesium (Mg) (06/22/17 02:42) Troponin I (06/22/17 02:42) Chest, Single Ap (06/22/17 02:42) Ecg Monitoring (06/22/17 02:42) Iv Access Insert/Monitor (06/22/17 02:42) Oximetry (06/22/17 02:42) Aspirin Chew (Aspirin Chew) (06/22/17 02:45) Morphine Inj (Morphine Inj) (06/22/17 02:45) Sodium Chloride 0.9% Flush (Ns Flush) (06/22/17 02:45) Ondansetron Inj (Zofran Inj) (06/22/17 02:45) Labs Laboratory Tests Test 06/22/17 02:40 White Blood Count 9.8 TH/MM3 Red Blood Count 4.86 MIL/MM3 Hemoglobin 14.2 GM/DL Hematocrit 42.5 % Mean Corpuscular Volume 87.5 FL Mean Corpuscular Hemoglobin 29.3 PG Mean Corpuscular Hemoglobin Concent 33.5 % Red Cell Distribution Width 13.8 % Platelet Count 229 TH/MM3 Mean Platelet Volume 9.0 FL Neutrophils (%) (Auto) 59.4 % Lymphocytes (%) (Auto) 23.5 % Monocytes (%) (Auto) 9.8 % Eosinophils (%) (Auto) 6.2 % Basophils (%) (Auto) 1.1 % Neutrophils # (Auto) 5.8 TH/MM3 Lymphocytes # (Auto) 2.3 TH/MM3 Monocytes # (Auto) 1.0 TH/MM3 Eosinophils # (Auto) 0.6 TH/MM3 Basophils # (Auto) 0.1 TH/MM3 CBC Comment DIFF FINAL Differential Comment Troponin I LESS THAN 0.02 NG/ML [facility] Medical Decision Making Medical Screen Exam Complete: Yes Emergency Medical Condition: Yes Medical Record Reviewed: Yes (medical history is significant for ADHD which is treated with Adderall and chronic pain which is treated with methadone.) Interpretation(s) EKG shows a normal sinus rhythm with no ST segment elevation or depression. He has Q waves in III. Differential Diagnosis Differential diagnosis includes but is not limited to viral syndrome, rhabdomyolysis, sepsis, overuse syndrome Narrative Course This patient presents with left forearm pain. His exam is normal. Last Impressions Chest X-Ray 06/22/17 0242 Signed Impressions: Service Date/Time: Thursday, June 22, 2017 02:53 - CONCLUSION: No evidence of acute cardiopulmonary disease. Jak Hastings MD The chest x-ray was independently viewed by me. CBC & BMP Diagram 06/22/17 02:40 Calcium Level 8.8, Magnesium Level 2.1 trop < 0.02 The history, exam, diagnostic testing, and current condition do not suggest any significant pathology to warrant further testing, continued ED treatment, admission, or surgical evaluation at this point. No EMC was found. The patient 's condition is stable and appropriate for discharge. Diagnosis Primary Impression: Left forearm pain Patient Instructions: Arm Pain (ED), General Instructions Disposition: 01 DISCHARGE HOME Condition: Stable Cecile Burks MD Jun 22, 2017 03:12
[2017-06-22 03:31] LABS: AUTOMATED NEUTROPHIL # 5.8 TH/MM3 (1.8-7.7); BASOPHIL # 0.1 TH/MM3 (0-0.2); BASOPHIL % 1.1 % (0.0-2.0); EOSINOPHIL # 0.6 TH/MM3 (0-0.4); EOSINOPHIL % 6.2 % (0.0-4.0); HEMATOCRIT 42.5 % (39.0-51.0); HEMO FLAGS DIFF FINAL; LYMPH % 23.5 % (9.0-44.0); LYMPHOCYTE # 2.3 TH/MM3 (1.0-4.8); MEAN CELL VOLUME 87.5 FL (80.0-100.0); MEAN CORPUSCULAR HEMOGLOBIN 29.3 PG (27.0-34.0); MEAN CORPUSCULAR HGB CONC 33.5 % (32.0-36.0); MONO % 9.8 % (0.0-8.0); NEUT % 59.4 % (16.0-70.0); PLATELET COUNT 229 TH/MM3 (150-450); RED BLOOD COUNT 4.86 MIL/MM3 (4.50-5.90); RED CELL DISTRIBUTION WIDTH 13.8 % (11.6-17.2); WHITE BLOOD COUNT 9.8 TH/MM3 (4.0-11.0)
[2017-06-22 03:46] LABS: ANION GAP 8 MEQ/L (5-15); BICARBONATE 28.8 MEQ/L (21.0-32.0); BLOOD UREA NITROGEN 15 MG/DL (7-18); CHLORIDE 102 MEQ/L (98-107); GLOMERULAR FILTRATION RATE 105 ML/MIN (>89); MAGNESIUM 2.1 MG/DL (1.5-2.5); SODIUM (NA) 139 MEQ/L (136-145)
[2017-06-22 03:47] LABS: POTASSIUM 3.9 MEQ/L (3.5-5.1)
--- NOTE | 2017-06-22 09:22 | EKG ---
Date Performed: 06/22/2017 Time Performed: 02:27:06 PTAGE: 56 years EKG: Sinus rhythm POSSIBLE INFERIOR MYOCARDIAL INFARCTION ABNORMAL ECG INTERPRETATION BASED ON A DEFAULT AGE OF 42 YEA RS PREVIOUS TRACING Since prior tracing, sinus rate is higher. DOCTOR: Piotr Barajas Interpretating Date/Time 06/22/2017 09:19:51
== END 2017-06-22 04:04 | disposition home or self-care (01) ==
LOC: NEPC 02:20
DX: M79.632 Pain in left forearm (principal); F90.9 Attention-deficit hyperactivity disorder, unspecified type; R06.02 Shortness of breath; R94.31 Abnormal electrocardiogram [ECG] [EKG]; K21.9 Gastro-esophageal reflux disease without esophagitis; G90.50 Complex regional pain syndrome I, unspecified; Z72.0 Tobacco use; Z79.899 Other long term (current) drug therapy; Z88.0 Allergy status to penicillin
CPT/HCPCS: 71010; 80048; 83735; 84484; 85025; 93005; 96374; 96375; 99285; J2270; J2405

== ENCOUNTER 2017-11-07 18:04 | Emergency (ER) | payer MEDICARE, OTHER ==
[2017-11-07 18:30] VITALS: BP 155/90; PULSE 71; RESP 18; TEMP 98.3; O2SAT 100
--- NOTE | 2017-11-07 20:08 | PD ---
HPI Chief Complaint: Edema Time Seen by Provider: 18:29 Travel History International Travel<30 days: No Contact w/Intl Traveler<30days: No Traveled to known affect area: No History of Present Illness HPI Pt is a 56-year-old male presenting to the emergency department for evaluation of right lower leg redness and swelling. Patient states he was sent by his primary doctor to rule out a DVT. Patient denies any history of DVT or pulmonary embolism. He does state he has a history of cellulitis. He denies any chest pain, shortness of breath, palpitations, fever, chills. Symptom onset was gradual, symptoms started 2-3 days ago. He reports his pain is a 7 out of 10, he states aching and sore. There are no alleviating factors, pain is exacerbated with movement and ambulation. PFSH Past Medical History ADHD: Yes GERD: Yes Neurologic: Yes (RSD) Migraines: Yes Past Surgical History Thoracic Surgery: Yes (STIMULATER IN BACK) Social History Alcohol Use: No Tobacco Use: Yes Substance Use: No Allergies-Medications (Allergen,Severity, Reaction): Coded Allergies: amoxicillin (Unverified Adverse Reaction, Intermediate, Nausea/Vomiting, 05/26/17) clavulanic acid (Unverified Adverse Reaction, Intermediate, Nausea/ Vomiting, 05/26/17) Reported Meds & Prescriptions Reported Meds & Active Scripts Active Cleocin (Clindamycin HCl) 150 Mg Cap 150 Mg PO Q6H 10 Days Reported Nexium (Esomeprazole DR) 40 Mg Capdr 40 Mg PO DAILY Topamax (Topiramate) 200 Mg Tab 200 Mg PO BID Flomax (Tamsulosin HCl) 0.4 Mg Cap 0.4 Mg PO HS Methadone (Methadone HCl) 10 Mg Tab 10 Mg PO BID Adderall (Amphetamine-Dextroamphetamine) 30 Mg Tab 30 Mg PO BID Avoid late evening doses. Space doses at least 4 to 6 hours if more than once/day dosing. Review of Systems Except as stated in HPI: all other systems reviewed are Neg Musculoskeletal: Positive: Edema, Pain Skin: Positive Change in Pigmentation Physical Exam Narrative GENERAL: Obese, well-developed, alert male. Presenting in no acute distress. SKIN: Warm and dry. Right lower leg is erythematous and edematous. HEAD: Normocephalic. EYES: No scleral icterus. No injection or drainage. NECK: Supple, trachea midline. No JVD or lymphadenopathy. CARDIOVASCULAR: Regular rate RESPIRATORY: No accessory muscle use. Data Data Last Documented VS Vital Signs Date Time Temp Pulse Resp B/P (MAP) Pulse Ox O2 Delivery O2 Flow Rate FiO2 11/07/17 18:30 98.3 71 18 155/90 (111) 100 Orders Orders Complete Blood Count With Diff (11/07/17 18:32) Comprehensive Metabolic Panel (11/07/17 18:32) Act Partial Throm Time (Ptt) (11/07/17 18:32) Prothrombin Time / Inr (Pt) (11/07/17 18:32) MDM Medical Decision Making Medical Screen Exam Complete: Yes Emergency Medical Condition: Yes Interpretation(s) Vital Signs Date Time Temp Pulse Resp B/P (MAP) Pulse Ox O2 Delivery O2 Flow Rate FiO2 11/07/17 18:30 98.3 71 18 155/90 (111) 100 Differential Diagnosis DVT versus cellulitis versus less likely CHF versus metabolic abnormality versus other Narrative Course Patient is well-appearing 56-year-old male presenting for evaluation of right lower extremity redness and swelling. Patient's vital signs are stable. Patient protocoled while waiting in triage. Patient was called be placed in a bed, he was no longer found in the emergency department. Patient left the emergency department AMA. Diagnosis Primary Impression: Left against medical advice Catarina Truong Nov 07, 2017 20:08
== END 2017-11-08 01:25 | disposition left against medical advice (07) ==
LOC: NED 18:04
DX: R60.0 Localized edema (principal); L53.9 Erythematous condition, unspecified; F90.9 Attention-deficit hyperactivity disorder, unspecified type; K21.9 Gastro-esophageal reflux disease without esophagitis; Z72.0 Tobacco use; Z53.20 Procedure and treatment not carried out because of patient's decision for unspecified reasons
CPT/HCPCS: 99281